=== PATIENT | female | born 2000 | race Two or more races ===

== ENCOUNTER 2023-09-06 11:42 | Emergency (ER) | payer MEDICAID ==
[~2023-09-06] VITALS: Ht 154.9 cm; Wt 61.4 kg
[2023-09-06 11:49] VITALS: TEMP 98
[2023-09-06 12:19] LABS: BASOPHILS % (AUTO) 0.4 % (0.0-2.0); EOSINOPHILS % (AUTO) 1.2 % (1.0-6.0); HEMATOCRIT 43.1 % (36-46); HEMOGLOBIN 14.4 g/dL (12.0-16.0); LYMPHOCYTES # (AUTO) 1.7 K/uL (1.0-4.8); LYMPHOCYTES % (AUTO) 27.8 % (22.0-44.0); MEAN CORPUSCULAR HEMOGLOBIN 31.4 pg (26.0-34.0); MEAN CORPUSCULAR HGB CONC 33.4 G/dL (31.0-37.0); MEAN CORPUSCULAR VOLUME 94 fL (80-100); MONOCYTES # (AUTO) 0.3 K/uL (0.1-1.0); MONOCYTES % (AUTO) 5.1 % (2.0-9.0); NEUTROPHILS % (AUTO) 65.5 % (40.0-70.0); PLATELET COUNT (AUTO) 352 K/uL (150-450); RED BLOOD CELL COUNT(AUTO) 4.59 MIL/uL (4.00-5.20); RED CELL DISTRIBUTION WIDTH 13.2 % (11.5-14.5)
[2023-09-06] MEDS ORDERED: IOHEXOL 350 MG/ML 100 ML VIAL ONE (12:24)
[2023-09-06] MEDS ORDERED: SODIUM CHLORIDE 0.9% 100 ML ONE (12:24)
[2023-09-06 12:26] LABS: ANION GAP 12 mmol/L (8-16); CALCIUM, TOTAL 8.6 mg/dL (8.8-10.5); CARBON DIOXIDE 28 mmol/L (22-29); CHLORIDE 102 mmol/L (98-107); CREATININE 0.65 mg/dL (0.60-1.30); GLOMERULAR FILTR. RATE CALC > 60 mL/min (>60); GLUCOSE,RANDOM 88 mg/dL (70-110); POTASSIUM 3.6 mmol/L (3.5-5.1); SODIUM SERUM 142 mmol/L (136-145); UREA NITROGEN, BLOOD 20 mg/dL (7-18)
[2023-09-06] MEDS: SODIUM CHLORIDE 0.9% 1,000 ML IV ONE (12:31)
[2023-09-06] MEDS: ACETAMINOPHEN 500 MG TABLET PO ONE (12:32)
[2023-09-06] MEDS: KETOROLAC TROMETHAMINE 30 MG/ML VIAL IVP ONE (12:32)
[2023-09-06] MEDS: ONDANSETRON HCL 4 MG/2 ML VIAL IVP ONE (12:32)
[2023-09-06 12:37] LABS: ALANINE AMINOTRANSFERASE 15 U/L (12-78); ALBUMIN 4.2 g/dL (3.4-5.0); ALKALINE PHOSPHATASE 54 U/L (46-116); ASPARTATE AMINOTRANSFERASE 16 U/L (15-37); BILIRUBIN,TOTAL 0.4 mg/dL (0.1-1.0); HCG,QUANTITATIVE < 1 mIU/mL (0-6); LIPASE 37 U/L (16-77); TOTAL PROTEIN, SERUM 8.1 g/dL (6.4-8.2)
[2023-09-06 14:12] LABS: APPEARANCE,URINE CLEAR (CLEAR); BILIRUBIN,URINE NEGATIVE (NEGATIVE); COLOR,URINE LIGHT YELLOW (YELLOW); GLUCOSE, URINE (UA) NEGATIVE (NEGATIVE); LEUKOCYTE ESTERASE ,URINE NEGATIVE (NEGATIVE); NITRATE,URINE NEGATIVE (NEGATIVE); OCCULT BLOOD,URINE NEGATIVE (NEGATIVE); PH,URINE 6.5 (5.0-8.0); PROTEIN,URINE 30-70 mg/dL (NEGATIVE); UROBILINOGEN,URINE <=1.0 mg/dL (<=1.0)
[2023-09-06 14:13] LABS: SPECIFIC GRAVITIY, URINE > 1.030 (1.003-1.030)
[2023-09-06 14:25] VITALS: BP 112/65; PULSE 80; RESP 18
== END 2023-09-06 14:26 | disposition home or self-care (01) ==
LOC: EMS 11:59
DX: N83.202 Unspecified ovarian cyst, left side (principal); Z98.890 Other specified postprocedural states
CPT/HCPCS: 99285; 74177; 96374; 76830; 76856; 96361; 96375; 80053; 81003; 83690; 84702; 85025; 36415; J1885; J2405; Q9967; J7030; J7050